=== PATIENT | female | born 1970 | race Caucasian/White ===

== ENCOUNTER 2016-08-18 06:31 | Day surgery (SDC) | payer OTHER ==
--- NOTE | 2016-08-13 16:34 | HP ---
DATE OF SURGERY: 08/18/2016 ADMISSION DIAGNOSIS: Hemorrhoids. ANTICIPATED PROCEDURE: Patient requiring colonoscopy for follow up of polyps. PAST MEDICAL HISTORY: ALLERGIES: NONE. MEDICATIONS: She has been on Nystatin, Deb's Magic Potion. 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 She has also had a PEG tube. SOCIAL HISTORY: Negative. FAMILY HISTORY: Negative. PHYSICAL EXAMINATION: VITAL SIGNS: Normal. CHEST: Clear. COR: Regular. IMPRESSION: The patient requires follow up of polyps and also has hemorrhoids. PLAN: Hemorrhoidectomy, C-scope.
[2016-08-18] MEDS ORDERED: Lactated Ringers 1,000 ML IV ONE ×2 (06:51→07:36)
[2016-08-18] MEDS ORDERED: Lactated Ringers 1,000 ML IV SCH (07:00)
[2016-08-18] MEDS ORDERED: ANUSOL-HC 2.5% CREAM 30 GM ONE (07:38)
[2016-08-18] MEDS ORDERED: DIPRIVAN 200 MG/20 ML IV ONE (08:00)
[2016-08-18] MEDS ORDERED: TORAdol 30 mg Injection IV ONE (08:00)
[2016-08-18] MEDS ORDERED: Decadron 4 MG INJ IV ONE (08:00)
[2016-08-18] MEDS ORDERED: ROBINUL IV ONE (08:00)
[2016-08-18] MEDS ORDERED: SUBLIMAZE 100 MCG/2 ML IV ONE (08:00)
[2016-08-18] MEDS ORDERED: Zofran 4 MG/2 ML VIAL IV ONE (08:00)
[2016-08-18] MEDS ORDERED: SUBLIMAZE 100 MCG/2 ML ONE (09:46)
[2016-08-18 10:21] VITALS: O2SAT 100
[2016-08-18 11:16] VITALS: BP 110/66; PULSE 52
--- NOTE | 2016-08-19 13:11 | OP ---
SURGERY DATE: 08/18/16 SURGERY TIME: 837 PREOPERATIVE DIAGNOSIS: 1. HEMORRHOIDS. 2. FOLLOW-UP POLYPS. POSTOPERATIVE DIAGNOSIS: 1. NO POLYPS TODAY, COLONOSCOPY TO CECUM SATISFACTORY. PLAN FOLLOW-UP IN 3 YEARS SHE DOES HAVE A HISTORY OF POLYPS. 2. COMPLEX HEMORRHOIDECTOMY, 3 INTERNAL AND 3 EXTERNAL, I.E. 3 COLUMNS. PROCEDURE: 1. Colonoscopy with hemorrhoidectomy, 3 internal and 3 external. SURGEON: Marko Richter M.D. ANESTHESIA: General. COMPLICATIONS: None. CONDITION: Stable. OPERATIVE PROCEDURE: Patient taken to surgery. Lithotomy. Routine prep and drape. 5, 7, and 11, 3 columns of hemorrhoids were taken, 3 internal and 3 external. Base suture 0 chromic catgut. Skin was transected. The hemorrhoids were amputated and secured off with 2-0 chromic and the base sutures were ran out to the skin. Colonoscopic examination was then performed which was basically normal to the cecum. Patient tolerated the procedure satisfactory. Long-lasting Marcaine was placed.
== END 2016-08-18 10:55 | disposition home or self-care (01) ==
LOC: SDC 06:31
PROVIDERS: ATTEND Surgery
PROC: 06BY0ZC Excision of Hemorrhoidal Plexus, Open Approach (ICD-10-PCS; principal; 2016-08-18)
PROC: 0DJD8ZZ Inspection of Lower Intestinal Tract, Via Natural or Artificial Opening Endoscopic (ICD-10-PCS; 2016-08-18)
DX: K64.8 Other hemorrhoids (principal); K64.4 Residual hemorrhoidal skin tags; Z86.010 Personal history of colon polyps; Z85.818 Personal history of malignant neoplasm of other sites of lip, oral cavity, and pharynx
CPT/HCPCS: 00810; 00902; 36415; 88304; J1100; J1885; J2405; J2704; J3010; A9270-GY

== ENCOUNTER 2020-01-09 08:02 | Day surgery (SDC) | payer OTHER ==
--- NOTE | 2020-01-02 14:12 | HP ---
DATE OF SURGERY: 01/09/2020 HISTORY OF PRESENT ILLNESS: The patient presents to the office with need for endoscopy. Her last colonoscopy was about three years ago. She had some colon polyps. To date she denies any GI signs or symptoms. She is doing well. She does have a family history of colon cancer. PAST MEDICAL HISTORY: Oral cancer. PAST SURGICAL HISTORY: Lumpectomy. ALLERGIES: NKDA. MEDICATIONS: Progesterone, Estradiol. FAMILY HISTORY: Colon cancer. SOCIAL HISTORY: Negative. REVIEW OF SYSTEMS: CONSTITUTIONAL: Denies fever or chills. CHEST: No shortness of breath. CVS: Denies chest pain. ABDOMEN: Denies abdominal pain, nausea, vomiting, diarrhea, constipation or rectal bleeding. : Denies dysuria or hematuria. PHYSICAL EXAMINATION: GENERAL: No acute distress. CHEST: Nonlabored. No shortness of breath. CVS: Regular rate and rhythm. ABDOMEN: Soft, nontender to palpation. EXTREMITIES: No edema. NEUROLOGIC: Alert. PSYCHIATRIC: Appropriate. IMPRESSION: The patient has a history of colon polyps and a positive family history of colon cancer. PLAN: Colonoscopy with Dr. Marko Richter. As dictated by Quin Gandara NP.
[2020-01-09] MEDS ORDERED: Lactated Ringers 1,000 ML IV ONE ×2 (08:12→10:12)
[2020-01-09] MEDS ORDERED: Ketamine HCl 50 MG/ML ONE (08:25)
[2020-01-09] MEDS ORDERED: DIPRIVAN 200 MG/20 ML IV ONE (08:25)
[2020-01-09] MEDS ORDERED: Lactated Ringers 1,000 ML IV SCH (08:30)
[2020-01-09] MEDS ORDERED: ROBINUL ONE (08:41)
--- NOTE | 2020-01-09 12:34 | OP ---
SURGERY DATE/TIME: 01/09/2020 1130 PREOPERATIVE DIAGNOSIS: Screening with family history positive for colon cancer. POSTOPERATIVE DIAGNOSIS: Normal. PROCEDURE: Colonoscopy complete to cecum. SURGEON: Marko Richter M.D. ANESTHESIA: MAC. COMPLICATIONS: None. CONDITION: Stable. PREP SCORE: Excellent. INDICATION: A patient requiring screening colonoscopy. DESCRIPTION OF PROCEDURE: Taken to endoscopy. Left lateral decubitus position. Anal digital examination satisfactory. Scope introduced. Scope advanced to the cecum. Base of the cecum, ileocecal valve, appendiceal orifice were normal. Ascending, hepatic, transverse, splenic, descending, sigmoid, rectum, anus is normal. Normal examination but she does have family history. We will leave her at her five year follow up.
[2020-01-09 12:37] VITALS: O2SAT 99
[2020-01-09 12:48] VITALS: BP 124/55; PULSE 46
== END 2020-01-09 12:40 | disposition home or self-care (01) ==
LOC: SDC 08:02
PROVIDERS: ATTEND Surgery
DX: Z12.11 Encounter for screening for malignant neoplasm of colon (principal); Z80.0 Family history of malignant neoplasm of digestive organs; Z86.010 Personal history of colon polyps; Z85.819 Personal history of malignant neoplasm of unspecified site of lip, oral cavity, and pharynx
CPT/HCPCS: J2704

== ENCOUNTER 2022-05-16 12:44 | Observation (INO) | payer OTHER ==
[2022-05-16] MEDS ORDERED: Sodium Chloride 0.9% 1000 ML 1,000 ML IV STA (13:18)
--- NOTE | 2022-05-16 13:19 | ERPHSYRPT ---
- History of Present Illness Time Seen by Provider: 05/16/22 13:23 Source: patient Exam Limitations: no limitations Patient Subjective Stated Complaint: Been having dizziness on and off for a couple weeks. Patient stated that this morning she was driving to work and start feeling like she was "slipping" like she was going to pass out. Patient stated that her heart also felt like is was racing. Dizziness upon standing. She stated since she has been feeling off balance and not like herself. Patient states that she has had a headache in the back of her head for about 3 weeks. States that tylenol helps. Took 2 tylenol 500mg this morning. Triage Nursing Assessment: Patient alert and oriented. Patient walked into the ER room, steady gait. Patient lung sounds clear. Patient bowel sounds active. Heart Rate bradycardiac but regular. Peripheral pulses +2. No complaints of pain at this time. Physician History: Patient is a 51-year-old female presents to our ED for evaluation of near syncope. Patient has a history of oral cancer. Patient states she was driving to work this morning. Patient began to feel dizzy. Patient felt as though she was going to pass out but did not. Patient states at that moment her heart began to race. She advises that she has been experiencing an occipital headache for approximately 3 weeks. Patient has been experiencing intermittent dizziness for approximately 2 to 3 weeks as well. Patient states she is otherwise healthy. She works out regularly. She feels somewhat off balance today. Patient has been taking Tylenol intermittently for her headache. No trauma. No fever. No chest pain or shortness of breath. No nausea vomiting or diaphoresis. Patient voices no other complaints or concerns at this time. Dizziness is somewhat worse when she transitions from sit to stand. Patient currently feels well at rest. Portions of this note were created with voice recognition technology. There may be grammatical, spelling, punctuation or sound alike errors Timing/Duration: today Severity: moderate Modifying Factors: Improves With: nothing Associated Symptoms: denies symptoms Allergies/Adverse Reactions: No Known Drug Allergies Allergy (Verified 01/09/20 08:25) Home Medications: Diphenoxylate HCl/Atropine [Lomotil] 1 udtab PO UD 01/01/20 [History] Estradiol [Vivelle-Dot] 1 each TD UD 01/01/20 [History] Progesterone, Micronized [Prometrium] 200 mg PO DAILY 01/01/20 [History] Hx Tetanus, Diphtheria Vaccination/Date Given: No Hx Influenza Vaccination/Date Given: Yes Hx Pneumococcal Vaccination/Date Given: No Travel Risk - International Travel Have you traveled outside of the country in past 3 weeks: No - Coronavirus Screening Are you exhibiting any of the following symptoms?: No Close contact with a COVID-19 positive Pt in past 14-21 Days: No - Vaccine Status Have you recieved a Covid-19 vaccination: Yes [employer]: Moderna - Vaccination Dates Date of 2cond Vaccination (if applicable): 06/2020 - Review of Systems Constitutional: No Symptoms, No Fever, No Chills Eyes: No Symptoms Ears, Nose, & Throat: No Symptoms Respiratory: No Symptoms, No Cough, No Dyspnea Cardiac: No Symptoms, No Chest Pain, No Edema, No Syncope Abdominal/Gastrointestinal: No Symptoms, No Abdominal Pain, No Nausea, No Vomiting, No Diarrhea Genitourinary Symptoms: No Symptoms, No Dysuria Musculoskeletal: No Symptoms, No Back Pain, No Neck Pain Skin: No Symptoms, No Rash Neurological: No Symptoms, No Dizziness, No Focal Weakness, No Sensory Changes Psychological: No Symptoms Endocrine: No Symptoms Hematologic/Lymphatic: No Symptoms Immunological/Allergic: No Symptoms All Other Systems: Reviewed and Negative - Past Medical History Pertinent Past Medical History: Yes Neurological History: No Pertinent History ENT History: No Pertinent History Cardiac History: No Pertinent History Respiratory History: Other Endocrine Medical History: No Pertinent History Musculoskeletal History: Other GI Medical History: GERD, Hemorrhoids History: No Pertinent History Psycho-Social History: No Pertinent History Female Reproductive Disorders: No Pertinent History Other Medical History: seasonal allergies, B EMG scheduled 07/31/20, Oral Cancer (Remission, 5 years) - Past Surgical History Past Surgical History: Yes Neuro Surgical History: No Pertinent History Cardiac: No Pertinent History Respiratory: No Pertinent History Gastrointestinal: No Pertinent History Genitourinary: No Pertinent History Musculoskeletal: No Pertinent History Female Surgical History: Other Other Surgical History: Endometrial ablation, tumor removal oral chemo and radiation tx. PEG tube 5 years ago. Removed 3 months after placement. - Social History Smoking Status: Never smoker Exposure to second hand smoke: No Drug Use: none Patient Lives Alone: No - Nursing Vital Signs Nursing Vital Signs: Initial Vital Signs Pulse Rate 45 L 05/16/22 12:44 Respiratory Rate 16 05/16/22 12:44 Blood Pressure 120/80 05/16/22 12:44 O2 Sat by Pulse Oximetry 100 05/16/22 12:44 Pain Scale Pain Intensity 0 - Physical Exam General Appearance: no apparent distress, alert Eye Exam: PERRL/EOMI, eyes nml inspection Ears, Nose, Throat Exam: normal ENT inspection, TMs normal, pharynx normal, moist mucous membranes Neck Exam: normal inspection, non-tender, supple, full range of motion Respiratory Exam: normal breath sounds, lungs clear, airway intact, No chest tenderness, No respiratory distress Cardiovascular Exam: regular rate/rhythm, normal heart sounds, normal peripheral pulses Gastrointestinal/Abdomen Exam: soft, normal bowel sounds, No tenderness, No mass Back Exam: normal inspection, normal range of motion, No CVA tenderness, No vertebral tenderness Extremity Exam: normal inspection, normal range of motion, pelvis stable Neurologic Exam: alert, oriented x 3, cooperative, normal mood/affect, nml cerebellar function, nml station & gait, sensation nml, No motor deficits Skin Exam: normal color, warm, dry, No rash Lymphatic Exam: No adenopathy SpO2 Interpretation: normal SpO2: 100 O2 Delivery: Room Air - Course Nursing assessment & vital signs reviewed: Yes EKG Interpreted by Me: RATE ([id number]), Sinus Arie, NORMAL AXIS, NORMAL INTERVALS - CT Exams Head CT Interpretation: Tele-radiologist Report (Normal CT head without contrast) Ordered Tests: Active Orders 24 hr Category Date Time Status EKG-ER Only STAT Care 05/16/22 13:18 Active IV Insertion STAT Care 05/16/22 13:18 Active Consult Neurology ROUTINE Cons 05/16/22 15:37 Completed HEAD WITHOUT CONTRAST [CT] Stat Exams 05/16/22 13:16 Completed CBC W DIFF Stat Lab 05/16/22 13:15 Completed CMP Stat Lab 05/16/22 13:15 Completed TSH [TSH, 3RD Generation] Stat Lab 05/16/22 13:15 Completed UA W/RFX UR CULTURE Stat Lab 05/16/22 13:30 Completed Transfer Order Routine Transfer 05/16/22 Ordered Medication Summary Discontinued Medications Generic Name Dose Route Start Last Admin Trade Name Freq PRN Reason Stop Dose Admin Sodium Chloride 1,000 mls @ 999 mls/hr 05/16/22 13:18 05/16/22 15:12 Sodium Chloride 0.9% 1000 Ml IV 05/16/22 14:18 Infused .Q1H1M STA Infusion Sodium Chloride Confirm 05/16/22 13:35 Sodium Chloride 0.9% 1000 Ml Administered 05/16/22 13:36 Dose 1,000 mls @ ud .ROUTE .[facility] Lab/Rad Data: Laboratory Result Diagrams 05/16/22 13:15 05/16/22 13:15 Laboratory Results 05/16/22 05/16/22 05/16/22 Range/Units 13:36 13:30 13:15 WBC (4.0-10.5) x10^3/uL RBC (4.1-5.4) x10^6/uL Hgb (12.0-16.0) g/dL Hct (35-47) % MCV (78-100) fL MCH (26-32) pg MCHC (32-36) g/dL RDW (11.5-14.0) % Plt Count (150-450) x10^3/uL MPV (7.5-11.0) fL Gran % (36.0-66.0) % Immature Gran % (Auto) (0.00-0.4) % Nucleat RBC Rel Count (0.00-0.1) % Eos # (Auto) (0-0.5) x10^3/uL Immature Gran # (Auto) (0.00-0.03) x10^3u/L Absolute Lymphs (auto) (1.0-4.6) x10^3/uL Absolute Monos (auto) (0.0-1.3) x10^3/uL Absolute Nucleated RBC (0.00-0.01) x10^3u/L Lymphocytes % (24.0-44.0) % Monocytes % (0.0-12.0) % Eosinophils % (0.00-5.0) % Basophils % (0.0-0.4) % Absolute Granulocytes (1.4-6.9) x10^3/uL Basophils # (0-0.4) x10^3/uL Sodium 137 (137-145) mmol/L Potassium 3.8 (3.5-5.1) mmol/L Chloride 105 (98-107) mmol/L Carbon Dioxide 29 (22-30) mmol/L Anion Gap 7.4 (5-15) MEQ/L BUN 15 (7-17) mg/dL Creatinine 0.81 (0.52-1.04) mg/dL Estimated GFR > 60.0 ML/MIN Glucose 104 (74-106) mg/dL Calcium 8.7 (8.4-10.2) mg/dL Total Bilirubin 0.30 (0.2-1.3) mg/dL AST 21 (14-36) U/L ALT 12 (0-35) U/L Alkaline Phosphatase 76 (38-126) U/L Serum Total Protein 6.7 (6.3-8.2) g/dL Albumin 4.1 (3.5-5.0) g/dL Free T4 (0.76-1.46) ng/dL TSH 3rd Generation (0.47-4.68) mIU/L Urine Color Yellow (Yellow) Urine Appearance Clear (Clear) Urine pH 5.5 (4.6-8.0) Ur Specific [place] <=1.005 (1.005-1.030) Urine Protein Negative (Negative) Urine Glucose (UA) Negative (Negative) mg/dL Urine Ketones Negative (Negative) Urine Blood Negative (Negative) Urine Nitrite Negative (Negative) Urine Bilirubin Negative (Negative) Urine Urobilinogen 0.2 (0.2) mg/dL Ur Leukocyte Esterase Negative (Negative) U Hyaline Cast (Auto) NONE SEEN (0-2) /LPF Urine Microscopic RBC 0-2 (0-5) /HPF Urine Microscopic WBC 0-2 (0-5) /HPF Ur Epithelial Cells None Seen (None Seen) /HPF Urine Bacteria None Seen (None Seen) /HPF Urine Culture Reflexed NO (NO) Influenza Type A Ag NEGATIVE (NEGATIVE) Influenza Type B Ag NEGATIVE (NEGATIVE) RSV (PCR) NEGATIVE (Negative) SARS-CoV-2 (PCR) NEGATIVE (NEGATIVE) 05/16/22 05/16/22 05/16/22 Range/Units 13:15 13:15 13:15 WBC 5.4 (4.0-10.5) x10^3/uL RBC 4.00 L (4.1-5.4) x10^6/uL Hgb 12.1 (12.0-16.0) g/dL Hct 37.6 (35-47) % MCV 94.0 (78-100) fL MCH 30.3 (26-32) pg MCHC 32.2 (32-36) g/dL RDW 11.9 (11.5-14.0) % Plt Count 304 (150-450) x10^3/uL MPV 10.2 (7.5-11.0) fL Gran % 66.7 H (36.0-66.0) % Immature Gran % (Auto) 0.2 (0.00-0.4) % Nucleat RBC Rel Count 0.0 (0.00-0.1) % Eos # (Auto) 0.05 (0-0.5) x10^3/uL Immature Gran # (Auto) 0.01 (0.00-0.03) x10^3u/L Absolute Lymphs (auto) 1.27 (1.0-4.6) x10^3/uL Absolute Monos (auto) 0.43 (0.0-1.3) x10^3/uL Absolute Nucleated RBC 0.00 (0.00-0.01) x10^3u/L Lymphocytes % 23.6 L (24.0-44.0) % Monocytes % 8.0 (0.0-12.0) % Eosinophils % 0.9 (0.00-5.0) % Basophils % 0.6 (0.0-0.4) % Absolute Granulocytes 3.58 (1.4-6.9) x10^3/uL Basophils # 0.03 (0-0.4) x10^3/uL Sodium (137-145) mmol/L Potassium (3.5-5.1) mmol/L Chloride (98-107) mmol/L Carbon Dioxide (22-30) mmol/L Anion Gap (5-15) MEQ/L BUN (7-17) mg/dL Creatinine (0.52-1.04) mg/dL Estimated GFR ML/MIN Glucose (74-106) mg/dL Calcium (8.4-10.2) mg/dL Total Bilirubin (0.2-1.3) mg/dL AST (14-36) U/L ALT (0-35) U/L Alkaline Phosphatase (38-126) U/L Serum Total Protein (6.3-8.2) g/dL Albumin (3.5-5.0) g/dL Free T4 0.88 (0.76-1.46) ng/dL TSH 3rd Generation 3.000 (0.47-4.68) mIU/L Urine Color (Yellow) Urine Appearance (Clear) Urine pH (4.6-8.0) Ur Specific [place] (1.005-1.030) Urine Protein (Negative) Urine Glucose (UA) (Negative) mg/dL Urine Ketones (Negative) Urine Blood (Negative) Urine Nitrite (Negative) Urine Bilirubin (Negative) Urine Urobilinogen (0.2) mg/dL Ur Leukocyte Esterase (Negative) U Hyaline Cast (Auto) (0-2) /LPF Urine Microscopic RBC (0-5) /HPF Urine Microscopic WBC (0-5) /HPF Ur Epithelial Cells (None Seen) /HPF Urine Bacteria (None Seen) /HPF Urine Culture Reflexed (NO) Influenza Type A Ag (NEGATIVE) Influenza Type B Ag (NEGATIVE) RSV (PCR) (Negative) SARS-CoV-2 (PCR) (NEGATIVE) - Progress Progress: improved Progress Note: Patient is a 51-year-old female presents to emergency department for evaluation of dizziness/near syncope. Review of system and physical exam is nonremarkable. Patient's complaints or acute. Complexity of complaint was moderate. No associated comorbidities associated with patient's complaint. Test ordered include CT head which is nonremarkable. CBC, CMP, COVID test. TSH UA. Testing all essentially nonremarkable. Due to the neurologic nature of patient's complaints we consulted telemetry neuro. Telemetry neuro advises admission for observation and MRI. Testing results reviewed and analyzed. This information was used as part of the medical decision-making process. We were concerned that patient's dizziness may have been volume depletion as patient exercises regularly. There is some concern that patient's oral intake may have been decreased over the past couple days. Normal saline administered. Patient currently asymptomatic. Case discussed with neurologist performing the telemetry neuro consult. He felt patient's symptoms were concerning and merited admission for observation as well as MRI in the morning. Case discussed with Dr. Rodriguez who accepts admission to observation. Plan of care discussed with patient. She agrees to admission at [facility] for further evaluation and treatment. Level of EM service provided was moderate. Complexity of the problem addressed was moderate. Amount and complexity of data reviewed and analyzed was moderate. Risks of complications, morbidity/mortality of patient management was moderate. No critical care time. Patient serves as an independent historian. No manufacturing technician required for interpretation. Portions of this note were created with voice recognition technology. There may be grammatical, spelling, punctuation or sound alike errors 05/16/22 16:[address] Howie Will see patient in: hospital (observation) Counseled pt/family regarding: lab results, diagnosis, rad results - Departure Departure Disposition: Observation Clinical Impression: Sinus bradycardia, Near syncope, Dizziness, Headache Condition: Stable Critical Care Time: No Referrals: DOCTOR,NO FAMILY [Primary Care Provider] - Follow up/PCP as directed
[2022-05-16 13:32] LABS: Absolute Neutrophil Ct (ANC) 3.58 x10^3/uL (1.4-6.9); Basophil (Absolute #) 0.03 x10^3/uL (0-0.4); Eosinophil % 0.9 % (0.00-5.0); Eosinophil (Absolute #) 0.05 x10^3/uL (0-0.5); Hematocrit 37.6 % (35-47); Hemoglobin 12.1 g/dL (12.0-16.0); Lymphocyte (Absolute #) 1.27 x10^3/uL (1.0-4.6); Lymphocytes % 23.6 % (24.0-44.0); Mean Corpuscular Hemoglobin 30.3 pg (26-32); Mean Corpuscular Hgb Concent. 32.2 g/dL (32-36); Mean Platelet Volume 10.2 fL (7.5-11.0); Monocyte (Absolute #) 0.43 x10^3/uL (0.0-1.3); Neutrophil % 66.7 % (36.0-66.0); Platelet Count 304 x10^3/uL (150-450); Red Cell Distribution Width 11.9 % (11.5-14.0); White Blood Count 5.4 x10^3/uL (4.0-10.5)
[2022-05-16] MEDS ORDERED: Sodium Chloride 0.9% 1000 ML 1,000 ML ONE (13:35)
[2022-05-16 13:44] LABS: Appearance Clear (Clear); Bacteria None Seen /HPF (None Seen); Bilirubin Negative (Negative); Blood Negative (Negative); Epithelial Cells None Seen /HPF (None Seen); Glucose, Urine Negative (Negative); Hyaline Casts NONE SEEN /LPF (0-2); Ketones Negative (Negative); Leukocyte Esterase Negative (Negative); Nitrite Negative (Negative); Ph 5.5 (4.6-8.0); Protein,Urine Dip Negative (Negative); RBC 0-2 /HPF (0-5); Specific Gravity <=1.005 (1.005-1.030); Urobilinogen 0.2 mg/dL (0.2); WBC 0-2 /HPF (0-5)
[2022-05-16 13:51] LABS: ADD URINE CULTURE? NO (NO)
--- NOTE | 2022-05-16 13:51 | XRAY ---
Indication: Headache 3 weeks. No known injury. Multiple contiguous axial images obtained through the head without contrast. Comparison: None Normal appearing brain parenchyma, ventricles, and bony calvarium. Visualized paranasal sinuses and mastoid air cells are clear. Impression: Normal CT head without contrast exam.
[2022-05-16 13:52] LABS: ALBUMIN 4.1 g/dL (3.5-5.0); ALKALINE PHOSPHATASE 76 U/L (38-126); ANION GAP 7.4 MEQ/L (5-15); BLOOD UREA NITROGEN 15 mg/dL (7-17); CHLORIDE 105 mmol/L (98-107); Calcium 8.7 mg/dL (8.4-10.2); Carbon Dioxide 29 mmol/L (22-30); Creatinine 1 0.81 mg/dL (0.52-1.04); EST GLOMERULAR FILTRATION RATE > 60.0 ML/MIN; Glucose 104 mg/dL (74-106); Potassium 3.8 mmol/L (3.5-5.1); SGOT/AST 21 U/L (14-36); SGPT/ALT 12 U/L (0-35); SODIUM 137 mmol/L (137-145); Total Protein 6.7 g/dL (6.3-8.2)
[2022-05-16 14:38] LABS: INFLUENZA A NEGATIVE (NEGATIVE); INFLUENZA B NEGATIVE (NEGATIVE); RESPIRATORY SYNCTIAL VIRUS NEGATIVE (Negative); SARS-CoV-2 Xpert Express NEGATIVE (NEGATIVE)
[2022-05-16] MEDS ORDERED: BABY ASPIRIN 81 MG CHEW PO ONE (16:11)
[2022-05-16] MEDS ORDERED: Sodium Chloride 0.9% 500 ML 500 ML IV SCH (16:15)
[2022-05-16] MEDS ORDERED: MILK OF MAGNESIA 30 ML PO PRN (16:54)
[2022-05-16] MEDS ORDERED: TYLENOL 325 MG PO PRN (16:54)
[2022-05-16] MEDS ORDERED: Zofran 4 MG/2 ML VIAL IV PRN (16:54)
[2022-05-16] MEDS ORDERED: MAALOX ES 30 ML UNIT DOSE PO PRN (16:54)
[2022-05-16] MEDS ORDERED: Senokot-S Tablet PO PRN (16:54)
[2022-05-16] MEDS ORDERED: Sodium Chloride 0.9% 1000 ML 1,000 ML IV SCH (17:00)
[2022-05-17 05:43] LABS: Risk Ratio 3.2
[2022-05-17 12:09] VITALS: BP 90/54; PULSE 54; O2SAT 98
--- NOTE | 2022-05-17 12:28 | PCM.SSS ---
History of Present Illness - Chief Complaint Chief Complaint: Symptomatic bradycardia History of Present Illness: is a 51 year old female with hx oral ca who was admitted through ER with symptomatic bradycardia, dizziness, and blurred vision. She was driving yesterday and felt lightheaded, panicked, "spaced out," like she was going to pass out; she rolled her window down, drank some water and put candy in her mouth until she made it to the hospital (for work). she felt wobbly. HR was 43. She saw the [employer] and EKG showed HR of 39; she was sent to ER for further eval. In ER, her HR got as low as [address] head was neg. Pt also c/o MODI for the past 3 weeks; she does have an old injury to neck/shoulder region and has MODI that are managed by massage, but she hasn't been able to get a massage in some time. This does seem like her typical MODI. Last week she had vertigo when she sat up out of bed, she just laid down to get it to resolve. Two days ago, she had lots of energy, ran on the treadmill, did many activities. - Review of Systems Neurological: Dizziness, Vertigo, Other (presyncope) All Other Systems: Reviewed and Negative Medications & Allergies Home Medications: Home Medication List Estradiol [Vivelle-Dot] 1 each TD UD 01/01/20 [History Confirmed 05/16/22] Progesterone, Micronized [Prometrium] 200 mg PO HS 01/01/20 [History Confirmed 05/16/22] Allergies/Adverse Reactions: Allergies Allergy/AdvReac Type Severity Reaction Status Date / Time No Known Drug Allergies Allergy Verified 01/09/20 08:25 - Past Medical History Past Medical History: Yes Neurological History: No Pertinent History ENT History: No Pertinent History Cardiac History: No Pertinent History Respiratory History: Other Endocrine Medical History: No Pertinent History Musculoskelatal History: Other GI Medical History: GERD, Hemorrhoids, Irritable Bowel History: No Pertinent History Pyscho-Social History: No Pertinent History Reproductive Disorders: No Pertinent History Comment: seasonal allergies, B EMG scheduled 07/31/20, Oral Cancer (Remission, 5 years) - Female History Are you now?: No - Past Surgical History Past Surgical History: Yes Neuro Surgical History: No Pertinent History Cardiac History: No Pertinent History Respiratory Surgery: No Pertinent History GI Surgical History: No Pertinent History Genitourinary Surgical Hx: No Pertinent History Musculskeletal Surgical Hx: No Pertinent History Female Surgical History: Other Other Surgical History: Endometrial ablation, tumor removal oral chemo and radiation tx. PEG tube 5 years ago. Removed 3 months after placement. - Social History Smoking Status: Never smoker Exposure to second hand smoke: No Alcohol: None Drug Use: none - Physical Exam Vital Signs: Vital Signs - 24 hr Temp Pulse Resp BP Pulse Ox 05/17/22 12:00 98.2 F 54 L 19 90/54 98 05/17/22 08:00 98.0 F 49 L 16 129/60 99 05/17/22 07:33 99 05/17/22 04:00 97.3 F 41 L 16 91/51 96 05/16/22 23:24 97.1 F 51 L 18 109/56 99 05/16/22 19:43 98.8 F 46 L 16 123/56 98 05/16/22 18:37 99 05/16/22 17:00 97.9 F 46 L 16 117/60 99 05/16/22 16:56 97.9 F 46 L 16 117/60 99 05/16/22 16:53 97.9 F 46 L 16 117/60 99 05/16/22 16:32 64 21 138/70 100 05/16/22 16:10 100 05/16/22 15:14 49 L 16 115/66 97 05/16/22 12:44 45 L 16 120/80 100 General Appearance: no apparent distress, alert (she is working on her computer from her hospital room.) Neurologic Exam: oriented x 3, cooperative, 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, 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) Eye Exam: PERRL/EOMI, eyes nml inspection, No scleral icterus Ears, Nose, Throat Exam: pharynx normal, moist mucous membranes Neck Exam: normal inspection, non-tender, No lymphadenopathy, No subcutaneous emphysema, No thyromegaly Respiratory Exam: normal breath sounds, lungs clear, No crackles/rales, No rhonchi, No wheezing Cardiovascular Exam: regular rate/rhythm, normal heart sounds, No murmur Gastrointestinal/Abdomen Exam: soft, normal bowel sounds, No tenderness, No distention, No mass, No guarding, No rebound Back Exam: normal inspection, No CVA tenderness, No rash Extremity Exam: normal inspection, No pedal edema, No swelling Skin Exam: normal color, warm, dry, No rash Results - Labs Lab/Micro Results: Lab Results-Last 24 Hours 05/16/22 05/16/22 05/16/22 Range/Units 13:15 13:15 13:15 WBC 5.4 (4.0-10.5) x10^3/uL RBC 4.00 L (4.1-5.4) x10^6/uL Hgb 12.1 (12.0-16.0) g/dL Hct 37.6 (35-47) % MCV 94.0 (78-100) fL MCH 30.3 (26-32) pg MCHC 32.2 (32-36) g/dL RDW 11.9 (11.5-14.0) % Plt Count 304 (150-450) x10^3/uL MPV 10.2 (7.5-11.0) fL Gran % 66.7 H (36.0-66.0) % Immature Gran % (Auto) 0.2 (0.00-0.4) % Nucleat RBC Rel Count 0.0 (0.00-0.1) % Eos # (Auto) 0.05 (0-0.5) x10^3/uL Immature Gran # (Auto) 0.01 (0.00-0.03) x10^3u/L Absolute Lymphs (auto) 1.27 (1.0-4.6) x10^3/uL Absolute Monos (auto) 0.43 (0.0-1.3) x10^3/uL Absolute Nucleated RBC 0.00 (0.00-0.01) x10^3u/L Lymphocytes % 23.6 L (24.0-44.0) % Monocytes % 8.0 (0.0-12.0) % Eosinophils % 0.9 (0.00-5.0) % Basophils % 0.6 (0.0-0.4) % Absolute Granulocytes 3.58 (1.4-6.9) x10^3/uL Basophils # 0.03 (0-0.4) x10^3/uL Sodium (137-145) mmol/L Potassium (3.5-5.1) mmol/L Chloride (98-107) mmol/L Carbon Dioxide (22-30) mmol/L Anion Gap (5-15) MEQ/L BUN (7-17) mg/dL Creatinine (0.52-1.04) mg/dL Estimated GFR ML/MIN Glucose (74-106) mg/dL Calcium (8.4-10.2) mg/dL Total Bilirubin (0.2-1.3) mg/dL AST (14-36) U/L ALT (0-35) U/L Alkaline Phosphatase (38-126) U/L Serum Total Protein (6.3-8.2) g/dL Albumin (3.5-5.0) g/dL Triglycerides (30-150) mg/dL Cholesterol (50-200) mg/dL LDL Cholesterol (30-100) mg/dL HDL Cholesterol (40-60) mg/dL Heart Disease Risk Ratio Free T4 0.88 (0.76-1.46) ng/dL TSH 3rd Generation 3.000 (0.47-4.68) mIU/L Urine Color (Yellow) Urine Appearance (Clear) Urine pH (4.6-8.0) Ur Specific [place] (1.005-1.030) Urine Protein (Negative) Urine Glucose (UA) (Negative) mg/dL Urine Ketones (Negative) Urine Blood (Negative) Urine Nitrite (Negative) Urine Bilirubin (Negative) Urine Urobilinogen (0.2) mg/dL Ur Leukocyte Esterase (Negative) U Hyaline Cast (Auto) (0-2) /LPF Urine Microscopic RBC (0-5) /HPF Urine Microscopic WBC (0-5) /HPF Ur Epithelial Cells (None Seen) /HPF Urine Bacteria (None Seen) /HPF Urine Culture Reflexed (NO) Influenza Type A Ag (NEGATIVE) Influenza Type B Ag (NEGATIVE) RSV (PCR) (Negative) SARS-CoV-2 (PCR) (NEGATIVE) 05/16/22 05/16/22 05/16/22 Range/Units 13:15 13:30 13:36 WBC (4.0-10.5) x10^3/uL RBC (4.1-5.4) x10^6/uL Hgb (12.0-16.0) g/dL Hct (35-47) % MCV (78-100) fL MCH (26-32) pg MCHC (32-36) g/dL RDW (11.5-14.0) % Plt Count (150-450) x10^3/uL MPV (7.5-11.0) fL Gran % (36.0-66.0) % Immature Gran % (Auto) (0.00-0.4) % Nucleat RBC Rel Count (0.00-0.1) % Eos # (Auto) (0-0.5) x10^3/uL Immature Gran # (Auto) (0.00-0.03) x10^3u/L Absolute Lymphs (auto) (1.0-4.6) x10^3/uL Absolute Monos (auto) (0.0-1.3) x10^3/uL Absolute Nucleated RBC (0.00-0.01) x10^3u/L Lymphocytes % (24.0-44.0) % Monocytes % (0.0-12.0) % Eosinophils % (0.00-5.0) % Basophils % (0.0-0.4) % Absolute Granulocytes (1.4-6.9) x10^3/uL Basophils # (0-0.4) x10^3/uL Sodium 137 (137-145) mmol/L Potassium 3.8 (3.5-5.1) mmol/L Chloride 105 (98-107) mmol/L Carbon Dioxide 29 (22-30) mmol/L Anion Gap 7.4 (5-15) MEQ/L BUN 15 (7-17) mg/dL Creatinine 0.81 (0.52-1.04) mg/dL Estimated GFR > 60.0 ML/MIN Glucose 104 (74-106) mg/dL Calcium 8.7 (8.4-10.2) mg/dL Total Bilirubin 0.30 (0.2-1.3) mg/dL AST 21 (14-36) U/L ALT 12 (0-35) U/L Alkaline Phosphatase 76 (38-126) U/L Serum Total Protein 6.7 (6.3-8.2) g/dL Albumin 4.1 (3.5-5.0) g/dL Triglycerides (30-150) mg/dL Cholesterol (50-200) mg/dL LDL Cholesterol (30-100) mg/dL HDL Cholesterol (40-60) mg/dL Heart Disease Risk Ratio Free T4 (0.76-1.46) ng/dL TSH 3rd Generation (0.47-4.68) mIU/L Urine Color Yellow (Yellow) Urine Appearance Clear (Clear) Urine pH 5.5 (4.6-8.0) Ur Specific [place] <=1.005 (1.005-1.030) Urine Protein Negative (Negative) Urine Glucose (UA) Negative (Negative) mg/dL Urine Ketones Negative (Negative) Urine Blood Negative (Negative) Urine Nitrite Negative (Negative) Urine Bilirubin Negative (Negative) Urine Urobilinogen 0.2 (0.2) mg/dL Ur Leukocyte Esterase Negative (Negative) U Hyaline Cast (Auto) NONE SEEN (0-2) /LPF Urine Microscopic RBC 0-2 (0-5) /HPF Urine Microscopic WBC 0-2 (0-5) /HPF Ur Epithelial Cells None Seen (None Seen) /HPF Urine Bacteria None Seen (None Seen) /HPF Urine Culture Reflexed NO (NO) Influenza Type A Ag NEGATIVE (NEGATIVE) Influenza Type B Ag NEGATIVE (NEGATIVE) RSV (PCR) NEGATIVE (Negative) SARS-CoV-2 (PCR) NEGATIVE (NEGATIVE) 05/17/22 Range/Units 04:35 WBC (4.0-10.5) x10^3/uL RBC (4.1-5.4) x10^6/uL Hgb (12.0-16.0) g/dL Hct (35-47) % MCV (78-100) fL MCH (26-32) pg MCHC (32-36) g/dL RDW (11.5-14.0) % Plt Count (150-450) x10^3/uL MPV (7.5-11.0) fL Gran % (36.0-66.0) % Immature Gran % (Auto) (0.00-0.4) % Nucleat RBC Rel Count (0.00-0.1) % Eos # (Auto) (0-0.5) x10^3/uL Immature Gran # (Auto) (0.00-0.03) x10^3u/L Absolute Lymphs (auto) (1.0-4.6) x10^3/uL Absolute Monos (auto) (0.0-1.3) x10^3/uL Absolute Nucleated RBC (0.00-0.01) x10^3u/L Lymphocytes % (24.0-44.0) % Monocytes % (0.0-12.0) % Eosinophils % (0.00-5.0) % Basophils % (0.0-0.4) % Absolute Granulocytes (1.4-6.9) x10^3/uL Basophils # (0-0.4) x10^3/uL Sodium (137-145) mmol/L Potassium (3.5-5.1) mmol/L Chloride (98-107) mmol/L Carbon Dioxide (22-30) mmol/L Anion Gap (5-15) MEQ/L BUN (7-17) mg/dL Creatinine (0.52-1.04) mg/dL Estimated GFR ML/MIN Glucose (74-106) mg/dL Calcium (8.4-10.2) mg/dL Total Bilirubin (0.2-1.3) mg/dL AST (14-36) U/L ALT (0-35) U/L Alkaline Phosphatase (38-126) U/L Serum Total Protein (6.3-8.2) g/dL Albumin (3.5-5.0) g/dL Triglycerides 61 (30-150) mg/dL Cholesterol 165 (50-200) mg/dL LDL Cholesterol 91 (30-100) mg/dL HDL Cholesterol 51 (40-60) mg/dL Heart Disease Risk Ratio 3.2 Free T4 (0.76-1.46) ng/dL TSH 3rd Generation (0.47-4.68) mIU/L Urine Color (Yellow) Urine Appearance (Clear) Urine pH (4.6-8.0) Ur Specific [place] (1.005-1.030) Urine Protein (Negative) Urine Glucose (UA) (Negative) mg/dL Urine Ketones (Negative) Urine Blood (Negative) Urine Nitrite (Negative) Urine Bilirubin (Negative) Urine Urobilinogen (0.2) mg/dL Ur Leukocyte Esterase (Negative) U Hyaline Cast (Auto) (0-2) /LPF Urine Microscopic RBC (0-5) /HPF Urine Microscopic WBC (0-5) /HPF Ur Epithelial Cells (None Seen) /HPF Urine Bacteria (None Seen) /HPF Urine Culture Reflexed (NO) Influenza Type A Ag (NEGATIVE) Influenza Type B Ag (NEGATIVE) RSV (PCR) (Negative) SARS-CoV-2 (PCR) (NEGATIVE) - Radiology Impressions Radiology Exams & Impressions: Radiology Procedures Category Date Time Status ECHO W/2D AND DOPPLER [US] Routine Exams 05/17/22 12:01 Ordered HEAD WITHOUT CONTRAST [CT] Stat Exams 05/16/22 13:16 Completed MRA BRAIN WITH CONTRAST [MRI] Routine Exams 05/17/22 12:04 Ordered MRA NECK WITH CONTRAST [MRI] Routine Exams 05/17/22 12:04 Ordered MRI BRAIN W & W/O CONTRAST [MRI] Routine Exams 05/17/22 12:04 Ordered - Other Procedures and Tests Respiratory Therapy 05/18/22 05:00 EKG ONCE 05/19/22 05:00 EKG ONCE Assessment/Plan (1) Sinus bradycardia Current Visit: Yes Status: Acute Assessment & Plan: may be causing the dizziness. Cardiology consult ordered. Echo pending. Holter monitor ordered x48 h outpatient in the event she is discharged to home today. Code(s): R00.1 - BRADYCARDIA, UNSPECIFIED (2) Dizziness Current Visit: Yes Status: Acute Assessment & Plan: Teleneurology consult done, thank you. MRI/MRA head/neck ordered per their recommendations. Echo as well. Will get INR/PT/PTT and d-dimer (since pt had covid in 2021). She did have vertigo last week which raises the question of BPPV as well, but with her hx oral ca and MODI/dizziness, she does need imaging. Stop lomotil, as it can cause dizziness. Code(s): R42 - DIZZINESS AND GIDDINESS (3) Headache Current Visit: Yes Status: Chronic Qualifiers: Headache type: tension-type Headache chronicity pattern: chronic headache Intractability: intractable Qualified Code(s): G44.221 - Chronic tension-type headache, intractable Code(s): R51.9 - HEADACHE, UNSPECIFIED (4) Near syncope Current Visit: Yes Status: Acute Hospital Summary - Hospital Course Hospital Course: Pt is 51 yo female, healthy but with hx oral ca, admitted through ER with symptomatic bradycardia, dizziness, presyncope, and MODI. Testing is being done today, along with cardiology tele consult. Teleneurology already done, thank you. Echo, MRI head, MRA head/neck pending today. Will dispo on advice of cardiology. - Vitals & Intake/Output Vital Signs: Vital Signs Temperature 98.2 F 05/17/22 12:00 Pulse Rate 54 L 05/17/22 12:00 Respiratory Rate 19 05/17/22 12:00 Blood Pressure 90/54 05/17/22 12:00 O2 Sat by Pulse Oximetry 98 05/17/22 12:00 Intake & Output: Intake & Output 05/15/22 05/16/22 05/17/22 05/18/22 11:59 11:59 11:59 11:59 Intake Total 1120 Balance 1120 Weight 62.2 kg - Lab Result Diagrams: 05/16/22 13:15 05/16/22 13:15 Lab Results-Last 24 Hrs: Lab Results-Last 24 Hours 05/16/22 05/16/22 05/16/22 Range/Units 13:15 13:15 13:15 WBC 5.4 (4.0-10.5) x10^3/uL RBC 4.00 L (4.1-5.4) x10^6/uL Hgb 12.1 (12.0-16.0) g/dL Hct 37.6 (35-47) % MCV 94.0 (78-100) fL MCH 30.3 (26-32) pg MCHC 32.2 (32-36) g/dL RDW 11.9 (11.5-14.0) % Plt Count 304 (150-450) x10^3/uL MPV 10.2 (7.5-11.0) fL Gran % 66.7 H (36.0-66.0) % Immature Gran % (Auto) 0.2 (0.00-0.4) % Nucleat RBC Rel Count 0.0 (0.00-0.1) % Eos # (Auto) 0.05 (0-0.5) x10^3/uL Immature Gran # (Auto) 0.01 (0.00-0.03) x10^3u/L Absolute Lymphs (auto) 1.27 (1.0-4.6) x10^3/uL Absolute Monos (auto) 0.43 (0.0-1.3) x10^3/uL Absolute Nucleated RBC 0.00 (0.00-0.01) x10^3u/L Lymphocytes % 23.6 L (24.0-44.0) % Monocytes % 8.0 (0.0-12.0) % Eosinophils % 0.9 (0.00-5.0) % Basophils % 0.6 (0.0-0.4) % Absolute Granulocytes 3.58 (1.4-6.9) x10^3/uL Basophils # 0.03 (0-0.4) x10^3/uL Sodium (137-145) mmol/L Potassium (3.5-5.1) mmol/L Chloride (98-107) mmol/L Carbon Dioxide (22-30) mmol/L Anion Gap (5-15) MEQ/L BUN (7-17) mg/dL Creatinine (0.52-1.04) mg/dL Estimated GFR ML/MIN Glucose (74-106) mg/dL Calcium (8.4-10.2) mg/dL Total Bilirubin (0.2-1.3) mg/dL AST (14-36) U/L ALT (0-35) U/L Alkaline Phosphatase (38-126) U/L Serum Total Protein (6.3-8.2) g/dL Albumin (3.5-5.0) g/dL Triglycerides (30-150) mg/dL Cholesterol (50-200) mg/dL LDL Cholesterol (30-100) mg/dL HDL Cholesterol (40-60) mg/dL Heart Disease Risk Ratio Free T4 0.88 (0.76-1.46) ng/dL TSH 3rd Generation 3.000 (0.47-4.68) mIU/L Urine Color (Yellow) Urine Appearance (Clear) Urine pH (4.6-8.0) Ur Specific [place] (1.005-1.030) Urine Protein (Negative) Urine Glucose (UA) (Negative) mg/dL Urine Ketones (Negative) Urine Blood (Negative) Urine Nitrite (Negative) Urine Bilirubin (Negative) Urine Urobilinogen (0.2) mg/dL Ur Leukocyte Esterase (Negative) U Hyaline Cast (Auto) (0-2) /LPF Urine Microscopic RBC (0-5) /HPF Urine Microscopic WBC (0-5) /HPF Ur Epithelial Cells (None Seen) /HPF Urine Bacteria (None Seen) /HPF Urine Culture Reflexed (NO) Influenza Type A Ag (NEGATIVE) Influenza Type B Ag (NEGATIVE) RSV (PCR) (Negative) SARS-CoV-2 (PCR) (NEGATIVE) 05/16/22 05/16/22 05/16/22 Range/Units 13:15 13:30 13:36 WBC (4.0-10.5) x10^3/uL RBC (4.1-5.4) x10^6/uL Hgb (12.0-16.0) g/dL Hct (35-47) % MCV (78-100) fL MCH (26-32) pg MCHC (32-36) g/dL RDW (11.5-14.0) % Plt Count (150-450) x10^3/uL MPV (7.5-11.0) fL Gran % (36.0-66.0) % Immature Gran % (Auto) (0.00-0.4) % Nucleat RBC Rel Count (0.00-0.1) % Eos # (Auto) (0-0.5) x10^3/uL Immature Gran # (Auto) (0.00-0.03) x10^3u/L Absolute Lymphs (auto) (1.0-4.6) x10^3/uL Absolute Monos (auto) (0.0-1.3) x10^3/uL Absolute Nucleated RBC (0.00-0.01) x10^3u/L Lymphocytes % (24.0-44.0) % Monocytes % (0.0-12.0) % Eosinophils % (0.00-5.0) % Basophils % (0.0-0.4) % Absolute Granulocytes (1.4-6.9) x10^3/uL Basophils # (0-0.4) x10^3/uL Sodium 137 (137-145) mmol/L Potassium 3.8 (3.5-5.1) mmol/L Chloride 105 (98-107) mmol/L Carbon Dioxide 29 (22-30) mmol/L Anion Gap 7.4 (5-15) MEQ/L BUN 15 (7-17) mg/dL Creatinine 0.81 (0.52-1.04) mg/dL Estimated GFR > 60.0 ML/MIN Glucose 104 (74-106) mg/dL Calcium 8.7 (8.4-10.2) mg/dL Total Bilirubin 0.30 (0.2-1.3) mg/dL AST 21 (14-36) U/L ALT 12 (0-35) U/L Alkaline Phosphatase 76 (38-126) U/L Serum Total Protein 6.7 (6.3-8.2) g/dL Albumin 4.1 (3.5-5.0) g/dL Triglycerides (30-150) mg/dL Cholesterol (50-200) mg/dL LDL Cholesterol (30-100) mg/dL HDL Cholesterol (40-60) mg/dL Heart Disease Risk Ratio Free T4 (0.76-1.46) ng/dL TSH 3rd Generation (0.47-4.68) mIU/L Urine Color Yellow (Yellow) Urine Appearance Clear (Clear) Urine pH 5.5 (4.6-8.0) Ur Specific [place] <=1.005 (1.005-1.030) Urine Protein Negative (Negative) Urine Glucose (UA) Negative (Negative) mg/dL Urine Ketones Negative (Negative) Urine Blood Negative (Negative) Urine Nitrite Negative (Negative) Urine Bilirubin Negative (Negative) Urine Urobilinogen 0.2 (0.2) mg/dL Ur Leukocyte Esterase Negative (Negative) U Hyaline Cast (Auto) NONE SEEN (0-2) /LPF Urine Microscopic RBC 0-2 (0-5) /HPF Urine Microscopic WBC 0-2 (0-5) /HPF Ur Epithelial Cells None Seen (None Seen) /HPF Urine Bacteria None Seen (None Seen) /HPF Urine Culture Reflexed NO (NO) Influenza Type A Ag NEGATIVE (NEGATIVE) Influenza Type B Ag NEGATIVE (NEGATIVE) RSV (PCR) NEGATIVE (Negative) SARS-CoV-2 (PCR) NEGATIVE (NEGATIVE) 05/17/22 Range/Units 04:35 WBC (4.0-10.5) x10^3/uL RBC (4.1-5.4) x10^6/uL Hgb (12.0-16.0) g/dL Hct (35-47) % MCV (78-100) fL MCH (26-32) pg MCHC (32-36) g/dL RDW (11.5-14.0) % Plt Count (150-450) x10^3/uL MPV (7.5-11.0) fL Gran % (36.0-66.0) % Immature Gran % (Auto) (0.00-0.4) % Nucleat RBC Rel Count (0.00-0.1) % Eos # (Auto) (0-0.5) x10^3/uL Immature Gran # (Auto) (0.00-0.03) x10^3u/L Absolute Lymphs (auto) (1.0-4.6) x10^3/uL Absolute Monos (auto) (0.0-1.3) x10^3/uL Absolute Nucleated RBC (0.00-0.01) x10^3u/L Lymphocytes % (24.0-44.0) % Monocytes % (0.0-12.0) % Eosinophils % (0.00-5.0) % Basophils % (0.0-0.4) % Absolute Granulocytes (1.4-6.9) x10^3/uL Basophils # (0-0.4) x10^3/uL Sodium (137-145) mmol/L Potassium (3.5-5.1) mmol/L Chloride (98-107) mmol/L Carbon Dioxide (22-30) mmol/L Anion Gap (5-15) MEQ/L BUN (7-17) mg/dL Creatinine (0.52-1.04) mg/dL Estimated GFR ML/MIN Glucose (74-106) mg/dL Calcium (8.4-10.2) mg/dL Total Bilirubin (0.2-1.3) mg/dL AST (14-36) U/L ALT (0-35) U/L Alkaline Phosphatase (38-126) U/L Serum Total Protein (6.3-8.2) g/dL Albumin (3.5-5.0) g/dL Triglycerides 61 (30-150) mg/dL Cholesterol 165 (50-200) mg/dL LDL Cholesterol 91 (30-100) mg/dL HDL Cholesterol 51 (40-60) mg/dL Heart Disease Risk Ratio 3.2 Free T4 (0.76-1.46) ng/dL TSH 3rd Generation (0.47-4.68) mIU/L Urine Color (Yellow) Urine Appearance (Clear) Urine pH (4.6-8.0) Ur Specific [place] (1.005-1.030) Urine Protein (Negative) Urine Glucose (UA) (Negative) mg/dL Urine Ketones (Negative) Urine Blood (Negative) Urine Nitrite (Negative) Urine Bilirubin (Negative) Urine Urobilinogen (0.2) mg/dL Ur Leukocyte Esterase (Negative) U Hyaline Cast (Auto) (0-2) /LPF Urine Microscopic RBC (0-5) /HPF Urine Microscopic WBC (0-5) /HPF Ur Epithelial Cells (None Seen) /HPF Urine Bacteria (None Seen) /HPF Urine Culture Reflexed (NO) Influenza Type A Ag (NEGATIVE) Influenza Type B Ag (NEGATIVE) RSV (PCR) (Negative) SARS-CoV-2 (PCR) (NEGATIVE) - Radiology Exams Ordered Rad Exams-Entire Visit: Radiology Procedures Category Date Time Status ECHO W/2D AND DOPPLER [US] Routine Exams 05/17/22 12:01 Ordered HEAD WITHOUT CONTRAST [CT] Stat Exams 05/16/22 13:16 Completed MRA BRAIN WITH CONTRAST [MRI] Routine Exams 05/17/22 12:04 Ordered MRA NECK WITH CONTRAST [MRI] Routine Exams 05/17/22 12:04 Ordered MRI BRAIN W & W/O CONTRAST [MRI] Routine Exams 05/17/22 12:04 Ordered - Procedures and Test Procedures and Tests throughout Hospitalization: Therapy Orders & Screens 05/16/22 16:54 EKG [id number],QAMX3,PRN Comment: 05/16/22 21:18 EKG ONCE Comment: Diagnosis: Symptomatic bradycardia 05/17/22 05:00 EKG ONCE Comment: Diagnosis: Symptomatic bradycardia 05/18/22 05:00 EKG ONCE Comment: Diagnosis: Symptomatic bradycardia 05/19/22 05:00 EKG ONCE Comment: Diagnosis: Symptomatic bradycardia - Discharge Disposition: Home, Self-Care Condition: Good Prescriptions: Continue Estradiol [Vivelle-Dot] 1 each TD UD Progesterone, Micronized [Prometrium] 200 mg PO HS Discontinued Diphenoxylate HCl/Atropine [Lomotil] 1 udtab PO UD PRN PRN Reason: IBS Outpatient Orders: Holter Monitor Time Frame: 2 Days, Facility: [facility], Location: RESPIRATORY THERAPY Follow up with: DOCTOR,NO FAMILY [Primary Care Provider] -
[2022-05-17 12:58] LABS: D-DIMER QUANTITATIVE 0.19 mg/L (0.0-0.50); INR 1.05 (0.8-3.0); PROTIME 11.1 SECONDS (9.4-12.5); PTT 27.3 SECONDS (25.1-36.5)
[2022-05-17] MEDS ORDERED: ESTRADIOL TD SCH (14:00)
[2022-05-17] MEDS ORDERED: MEDICATION INTERVENTION MC SCH ×2 (14:00)
[2022-05-17] MEDS ORDERED: NORCO 5/325 MG PO ONE (14:35)
--- NOTE | 2022-05-17 14:53 | XRAY ---
Indication: Headache, dizziness, near syncope, and bradycardia. Normal CT head one day earlier. Multi-slab 3-D [id number] MRA [place] performed. Comparison: June 04, 2013 Distal internal carotid arteries are bilaterally symmetric without critical stenosis, obstruction, or AV malformation. Normal carotid terminus with normal branching A1 and M1 segments bilaterally. More distal anterior cerebral and middle cerebral arteries are normal in MRA appearance. Posterior circulation demonstrates normal MRA appearance to the basilar, left/right posterior cerebral, and left/right superior cerebellar arteries. Impression: Continued normal MRA [place].
[2022-05-17] MEDS ORDERED: PROGESTERONE MICRONIZED 200 MG PO SCH (22:00)
== END 2022-05-17 16:10 | disposition home or self-care (01) ==
LOC: ED 12:44 → MED SURG 16:50
PROVIDERS: ADMIT Family Medicine; ATTEND Family Medicine
DX: R00.1 Bradycardia, unspecified (principal); R42 Dizziness and giddiness; R51.9 Headache, unspecified; R55 Syncope and collapse; Z85.819 Personal history of malignant neoplasm of unspecified site of lip, oral cavity, and pharynx; Z79.899 Other long term (current) drug therapy; Z20.828 Contact with and (suspected) exposure to other viral communicable diseases
CPT/HCPCS: 0241U; 36000; 36415; 70450; 70544; 80053; 80061; 81001; 83721; 84439; 84443; 85025; 85379; 85610; 85730; 93005; 93225; 93306; 94762; 96360; 99285; 93268; Q3014; A9270-GY; G0378

== ENCOUNTER 2022-10-20 07:07 | Day surgery (SDC) | payer OTHER ==
--- NOTE | 2022-10-19 14:38 | PCM.HP ---
History of Present Illness - Chief Complaint History of Present Illness: is a 52 year old female. HPI recent low heart rate recent low sodium bp runs low post radiation salivary dryness lots of choking even on small pills choking on dry stuff ROS negative Exam gen- nad chest - nonlabored cv- rrr gi- soft Impression: Dysphagia Plan egd possible dilatation op messi Richter M.D. 11 Aug 2022 03:34 PM Medications & Allergies Home Medications: Home Medication List Estradiol [Vivelle-Dot] 1 each TD UD 01/01/20 [History Confirmed 09/15/22] Progesterone, Micronized [Prometrium] 200 mg PO HS 01/01/20 [History Confirmed 09/15/22] Allergies/Adverse Reactions: Allergies Allergy/AdvReac Type Severity Reaction Status Date / Time No Known Drug Allergies Allergy Verified 09/15/22 11:11 - Past Medical History Past Medical History: Yes Neurological History: No Pertinent History ENT History: No Pertinent History Cardiac History: No Pertinent History Respiratory History: Other Endocrine Medical History: No Pertinent History Musculoskelatal History: Other GI Medical History: GERD, Hemorrhoids, Irritable Bowel History: No Pertinent History Pyscho-Social History: No Pertinent History Reproductive Disorders: No Pertinent History Comment: seasonal allergies, B EMG scheduled 07/31/20, Oral Cancer (Remission, 5 years) - Past Surgical History Past Surgical History: Yes Neuro Surgical History: No Pertinent History Cardiac History: No Pertinent History Respiratory Surgery: No Pertinent History GI Surgical History: No Pertinent History Genitourinary Surgical Hx: No Pertinent History Musculskeletal Surgical Hx: No Pertinent History Female Surgical History: Other Other Surgical History: Endometrial ablation, tumor removal oral chemo and radiation tx. PEG tube 5 years ago. Removed 3 months after placement. - Social History Smoking Status: Never smoker Exposure to second hand smoke: No Alcohol: None Drug Use: none
[~2022-10-20 07:07] MED LIST: Lactated Ringers 1,000 ML IV SCH
[2022-10-20] MEDS ORDERED: Lactated Ringers 1,000 ML IV ONE (07:23)
[2022-10-20] MEDS ORDERED: DIPRIVAN 200 MG/20 ML IV ONE (09:23)
[2022-10-20] MEDS ORDERED: Versed 2 MG/2 ML Injection ONE (09:23)
[2022-10-20 10:47] VITALS: BP 109/59; PULSE 48; O2SAT 100
--- NOTE | 2022-10-20 11:50 | OP ---
SURGERY DATE/TIME: 10/20/2022 0955 PREOPERATIVE DIAGNOSIS: Dysphagia. POSTOPERATIVE DIAGNOSIS: Dysphagia. PROCEDURE: EGD with upper esophageal dilatation. SURGEON: Marko Richter M.D. ANESTHESIA: MAC. COMPLICATIONS: None. CONDITION: Stable. DESCRIPTION OF PROCEDURE: The scope is introduced and went through the pharyngoesophageal junction. Esophagus normal down to gastroesophageal junction. Grade 2/4. A small hiatal hernia. Fundus, body and antrum normal. Pylorus normal. Duodenal bulb normal. Second portion normal. Scope withdrawn looped upon itself and normal from below. Again, the anatomy here there was a grade 2/4 gastroesophageal reflux disease and a small hiatal hernia. In the upper esophagus 1.5 inches below the pharyngoesophageal junction area on the right side and on the left side was a previously denuded area about 1 inch long about 3/4 inch sort of elliptical vertical in nature on both the left and right although the right was a little more prominent. It was healed over. There was nothing really to biopsy here. Size 40 dilator followed by size 48 dilator was replaced. The scope was reintroduced and satisfactory. Successful dilatation to size 48.
== END 2022-10-20 11:00 | disposition home or self-care (01) ==
LOC: SDC 07:07
PROVIDERS: ATTEND Surgery
DX: K21.9 Gastro-esophageal reflux disease without esophagitis (principal); R13.10 Dysphagia, unspecified; K44.9 Diaphragmatic hernia without obstruction or gangrene
CPT/HCPCS: J2250; J2704

== ENCOUNTER 2024-02-06 07:06 | Day surgery (SDC) | payer OTHER ==
[2024-02-06] MEDS ORDERED: Lactated Ringers 1,000 ML IV ONE ×2 (07:20→12:34)
[2024-02-06] MEDS ORDERED: CEFAZOLIN 2 GM/100 ML NaCl 2 GM/100 ML IVPB IV ONE (07:20)
[2024-02-06 07:43] VITALS: O2SAT 98
[2024-02-06] MEDS: Lactated Ringers 1,000 ML IV SCH (07:48)
[2024-02-06] MEDS: CEFAZOLIN 2 GM/100 ML NaCl 2 GM/100 ML IVPB IV SCH (07:49)
[2024-02-06 07:50] LABS: Hematocrit 39.7 % (34.1-44.9); Hemoglobin 13.4 g/dL (11.2-15.7); Mean Cell Volume 91.5 fL (79.4-94.8); Mean Corpuscular Hemoglobin 30.9 pg (25.6-32.2); Mean Corpuscular Hgb Concent. 33.8 g/dL (32.2-35.5); Mean Platelet Volume 10.2 fL (9.4-12.3); Platelet Count 241 x10^3/uL (182-369); Red Blood Count 4.34 x10^6/uL (3.93-5.22); Red Cell Distribution Width 11.5 % (11.7-14.4); White Blood Count 4.6 x10^3/uL (3.98-10.04)
[2024-02-06 08:21] LABS: ANION GAP 10.1 MEQ/L (5-15); BILIRUBIN,TOTAL 0.4 mg/dL (0.2-1.3); Calcium 9.1 mg/dL (8.4-10.2); Creatinine 1 0.88 mg/dL (0.52-1.04); EST GLOMERULAR FILTRATION RATE 78.1 ML/MIN; Total Protein 6.7 g/dL (6.3-8.2)
[2024-02-06] MEDS ORDERED: EXPAREL 133 MG/10 ML VIAL IJ ONE (09:23)
[2024-02-06] MEDS ORDERED: Marcaine 0.5%/Epinephrine 10 ML ONE (09:25)
[2024-02-06] MEDS ORDERED: SUBLIMAZE 100 MCG/2 ML ONE (09:49)
[2024-02-06] MEDS ORDERED: Versed 2 MG/2 ML Injection ONE (09:49)
[2024-02-06] MEDS ORDERED: BRIDION 200MG/2ML IV ONE (09:53)
[2024-02-06] MEDS ORDERED: ROCURONIUM BROMIDE IV ONE (09:53)
[2024-02-06] MEDS ORDERED: Decadron 4 MG INJ ONE (09:53)
[2024-02-06] MEDS ORDERED: Xylocaine-Mpf 2% 5 Ml Vial ONE (09:53)
[2024-02-06] MEDS ORDERED: Zofran 4 MG/2 ML VIAL ONE (09:53)
[2024-02-06] MEDS ORDERED: TORAdol 30 mg Injection ONE (09:53)
[2024-02-06] MEDS ORDERED: DIPRIVAN 200 MG/20 ML IV ONE (09:53)
[2024-02-06] MEDS ORDERED: Marcaine Mpf 0.5% Vial 30 Ml ONE (10:18)
[2024-02-06] MEDS ORDERED: XYLOCAINE 1% HCL 20 ML MDV ONE (10:18)
--- NOTE | 2024-02-06 13:22 | XRAY ---
Indication: Left foot bunion correction. Lapidus arthrodesis. Possible MCL appear. Intraoperative fluoroscopy provided for 2 minutes 56 seconds. 14 digital spot images submitted for interpretation ultimately demonstrates 1st tarsometatarsal arthrodesis with intact hardware and instrumentation 1st MTP joint. Correlate with intraoperative findings/report.
[2024-02-06] MEDS ORDERED: Compazine 10 MG/2 ML ONE (14:05)
--- NOTE | 2024-02-06 15:07 | XRAY ---
Two minutes and 56 seconds of fluoroscopy was used in surgery for a left foot bunion correction. Lapidus arthrodesis. Possible MCL appear.
[2024-02-06 15:09] VITALS: RESP 16
[2024-02-06] MEDS ORDERED: Transderm Scop 1.5MG Patch ONE (15:11)
[2024-02-06] MEDS: Transderm Scop 1.5MG Patch TOP ONE (15:12)
[2024-02-06 15:30] VITALS: BP 97/64; PULSE 64
[2024-02-06 15:36] VITALS: TEMP 97
--- NOTE | 2024-02-09 10:38 | OP ---
SURGERY DATE/TIME: 02/06/2024 [id number] PREOPERATIVE DIAGNOSES: 1) Hallux abductovalgus, left foot. 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 3) Osteoarthritis, metatarsophalangeal joint. 4) Weakened medial collateral ligament, 1st metatarsophalangeal joint. POSTOPERATIVE DIAGNOSES: 1) Hallux adductor valgus, left foot. 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 3) Osteoarthritis, metatarsophalangeal joint. 4) Weakened medial collateral ligament, 1st metatarsophalangeal joint. PROCEDURE: 1) Lapidus arthrodesis, left foot. 2) Silver osteotomy with lateral release. 3) Medial collateral ligament tear with InternalBrace. SURGEON: Barry Olivas DPM [employer]ET [employer] MECHANIC: CANDACE Crawford ANESTHESIA: General plus a preoperative popliteal and saphenous block. HEMOSTASIS: Ankle tourniquet set to 250 mmHg for a total of 105 total tourniquet minutes. INJECTABLES: See anesthesia report for details. INDICATIONS FOR PROCEDURE: The patient is a very pleasant 53-year-old female well known to my service for a bunion to the left foot that has caused her a significant amount of pain with ambulation and shoe gear. The patient is very active and does a good amount of walking and athletic activity. From that standpoint, the patient has put off this procedure for a significant amount of time in order to see conservatively. As time progressed, the patient did have no improvement with her pain and continued pain as she continued to be active. We planned for a date of addressing the issue. An MRI was taken several weeks prior to the procedure to confirm our game plan in relation to her hypermobility and the moderate-sized bunion. This did show some minimal osteoarthritic process to the medial aspect of the 1st metatarsophalangeal joint. We decided to proceed with a Silver osteotomy and a repair of the medial collateral ligament in order to alleviate the pain medially as well as restore the center of rotational ambulation at the 1st tarsometatarsal joint base. The patient was in agreement with this plan. All risks, complications, and benefits of surgical intervention at this time were discussed including but not limited to infection, hematoma, seroma, possibility of delayed wound healing, non-wound healing, possible failure of surgical intervention, possible irritating hardware, and possible need for further surgical intervention at a later date. No guarantees were provided as to the outcome of surgical intervention. Plenty of time was allowed for the patient to ask questions to her apparent satisfaction. It is at this time we decided to proceed. DESCRIPTION OF PROCEDURE AND FINDINGS: The patient was brought into the postoperative anesthesia care unit prior to the procedure and provided popliteal and saphenous blocks. Following this, the patient was brought into the operating room and placed on the operating room table in the supine position. General anesthesia was administered, and the patient was adequately sedated. A well-padded left ankle tourniquet was applied, and the tourniquet was set to 250 mmHg. At this time, the left lower extremity was prepped and draped in the typical sterile fashion and lowered onto the surgical field. At this time, an Esmarch was utilized to exsanguinate the leg and the tourniquet was inflated. Attention was directed to the dorsal aspect of the medial cuneiform and 1st metatarsal where, utilizing telephoner's specifications for the InCore Dnoa Lapidus, a linear incision was made approximately 6 cm in length extending from the dorsal aspect of the medial cuneiform of the left foot over the 1st metatarsal base, carefully retracting out the extensor hallucis longus and the extensor hallucis brevis out of the surgical field. This was carried down to the level of the 1st tarsometatarsal joint where the joint was identified. The capsule was incised and removed. Then, an osteotome was taken down to the level of the joint releasing the plantar capsule of the joint. Following this, a paddle was introduced for the guide pin placement into the medial cuneiform which under fluoroscopic guidance was assessed to be in an adequate position. Once this was placed, a cut guide was placed and appropriate resections of the 1st metatarsal base as well as the medial cuneiform were resected exposing the subchondral plate with healthy bleeding bone beneath it. Once this was accomplished, the InCore nail was then reamed, drilled, and placed, and K-wires were then placed in the distal aspect of the limb into the metatarsal and distraction of the joint took place. We did remove the cartilage from the tarsometatarsal joint space where the resection took place. Once this was accomplished, the compression was applied and adequate reduction of the intermetatarsal angle IM 1-2 was then closed down. From this standpoint, the patient did have some significant adaptation to the 1st metatarsal head, so the decision was made to proceed after placement of the InCore nail with the 3.5 x 44 and 3.5 x 30 screws to proceed with the silver osteotomy and a lateral release. Lateral release was performed under fluoroscopic guidance with a stab incision at the medial aspect, releasing the suspensory ligament, the lateral collateral ligaments as well as the suspensory ligament. From that standpoint, the sesamoids did move freer. From that standpoint, a linear incision was made at the medial aspect of the 1st metatarsophalangeal joint where the capsule was significantly thickened in this area. This was debulked and then a portion of the arthritic joint was removed, making sure not to injure the metatarsal head. Once this was accomplished, a 1.45 JuggerKnot was introduced into the proximal phalangeal base, and then under physiologic tension, pulling the toe out into a more neutral alignment, a 2.9 Betta Link was then utilized for the medial collateral ligament repair, InternalBrace. Following this, the capsule was then repaired utilizing 2-0 Vicryl; 4-0 Monocryl was then utilized to repair the subcutaneous tissue in simple interrupted buried-type fashion. Copious amounts of sterile saline were utilized to flush both surgical sites. The skin was then coapted utilizing 4-0 Monocryl in a simple interrupted buried-type fashion and then 3-0 nylon in a horizontal mattress-type fashion for both the medial and lateral incision. From that standpoint, final fluoroscopic pictures were taken demonstrating improved position of the intermetatarsal angle and sesamoids as well as reduction of the bunion deformity. The patient was then provided a dressing consisting of Betadine, Adaptic, 4 x 4, Kerlix, ABD, and Danny. The patient was then reversed from anesthesia and returned to the postoperative anesthesia care unit with vital signs stable and vascular status intact. The patient handled the anesthesia as well as the procedure without significant complication. Postoperative orders as indicated in the patient's discharge chart.
== END 2024-02-06 15:35 | disposition home or self-care (01) ==
LOC: SDC 07:06
PROVIDERS: ATTEND Podiatrist Foot & Ankle Surgery
DX: M20.12 Hallux valgus (acquired), left foot (principal); M35.7 Hypermobility syndrome; M19.072 Primary osteoarthritis, left ankle and foot; S93.502A Unspecified sprain of left great toe, initial encounter
CPT/HCPCS: 26590; 28292; 28297; 36415; 73630; 76000; 80053; 85027; 97116; C1713; J0690; J1100; J1885; J2250; J2405; J2704; J3010; A9270-GY

== ENCOUNTER 2024-08-15 13:07 | Day surgery (SDC) | payer OTHER | END 2024-08-15 13:11 | disposition home or self-care (01) | LOC: SDC-PAIN 13:07 | PROVIDERS: ATTEND Psychiatry & Neurology Pain Medicine | DX: Z53.8 Procedure and treatment not carried out for other reasons (principal) ==

== ENCOUNTER 2024-08-21 14:12 | Day surgery (SDC) | payer OTHER ==
[2024-08-21] MEDS ORDERED: dexAMETHasone sodium phosphate IJ ONE (14:13)
[2024-08-21] MEDS ORDERED: LIDOCAINE HCL 1% AMPUL 5 ML IJ ONE (14:13)
[2024-08-21] MEDS ORDERED: BUPIVACAINE 0.5% VIAL IJ ONE (14:13)
[2024-08-21] MEDS ORDERED: Depo-Medrol 40 MG/ML IM ONE (14:13)
--- NOTE | 2024-08-21 20:19 | XRAY ---
Indication: Right SI joint and piriformis injection. Intraoperative fluoroscopy provided for 46 seconds. 2 digital spot images submitted for interpretation demonstrates posterior needle tips projecting over right SI joint and right piriformis. Small amount of contrast injected for needle tip placement. Correlate with intraoperative findings/report.
--- NOTE | 2024-08-21 21:51 | XRAY ---
46 seconds of fluoroscopy were used in surgery for a right sacroiliac joint injection and a right piriformis muscle injection.
== END 2024-08-21 18:25 | disposition home or self-care (01) ==
LOC: SDC-PAIN 14:12
PROVIDERS: ATTEND Psychiatry & Neurology Pain Medicine
DX: M46.1 Sacroiliitis, not elsewhere classified (principal); M79.18 Myalgia, other site
CPT/HCPCS: 20552; 27096; 72170; 77003; J1100; Q9966

== ENCOUNTER 2025-02-26 11:46 | Day surgery (SDC) | payer OTHER ==
[2025-02-26] MEDS ORDERED: BUPIVACAINE 0.5% VIAL IJ ONE (11:47)
[2025-02-26] MEDS ORDERED: methylPREDNISolone acetate IM ONE (11:47)
[2025-02-26] MEDS ORDERED: LIDOCAINE HCL 1% 50 MG/5 ML VL IJ ONE (11:47)
--- NOTE | 2025-02-26 20:04 | XRAY ---
Indication: Right piriformis and hip injection. Intraoperative fluoroscopy provided for 25 seconds. 2 digital spot image obtained prone submitted for interpretation demonstrates posterior needle tip projecting over right piriformis. 2nd needle tip lateral to right femur neck. Small amount of contrast injected for needle tip placement. Correlate with intraoperative findings/report.
--- NOTE | 2025-02-27 09:18 | XRAY ---
25 seconds of fluoroscopy was used in surgery for a right intra-articular hip and right piriformis injection.
== END 2025-02-26 18:32 | disposition home or self-care (01) ==
LOC: SDC-PAIN 11:46
PROVIDERS: ATTEND Psychiatry & Neurology Pain Medicine
DX: M16.11 Unilateral primary osteoarthritis, right hip (principal); M79.18 Myalgia, other site